=== PATIENT | male | born 1940 | race Caucasian/White ===

== ENCOUNTER 2020-09-07 16:36 | Inpatient (IN) | payer OTHER ==
[~2020-09-07] VITALS: Ht 190.5 cm; Wt 95.3 kg
--- NOTE | 2020-09-07 16:56 | NUR ---
at bedside for assessment
--- NOTE | 2020-09-07 17:20 | NUR ---
Sitter noted at bedside, no behaviors noted
--- NOTE | 2020-09-07 18:55 | NUR ---
Pt. admitted to [facility]HU , under care of Dr. Farias Belongs List completed and all belongigns sent with patient
[2020-09-07] MEDS ORDERED: ASPI81TA31 PO (19:10)
[2020-09-07] MEDS ORDERED: ALLO100T PO (19:10)
[2020-09-07] MEDS ORDERED: ATOR40TA PO (19:10)
[2020-09-07] MEDS ORDERED: FURO40TA5 PO (19:16)
[2020-09-07] MEDS ORDERED: TRAZ-182 PO (19:16)
[2020-09-07] MEDS ORDERED: OLAN5TAB3 PO (19:16)
[2020-09-07] MEDS ORDERED: TAMS-3 PO (19:16)
[2020-09-07] MEDS ORDERED: POTA10CA43 PO (19:16)
[2020-09-07] MEDS ORDERED: PANT40TA49 PO (19:16)
[2020-09-07] MEDS ORDERED: INSU100I47 SQ (19:16)
[2020-09-07] MEDS ORDERED: INSU100V10 SQ (19:16)
[2020-09-07] MEDS ORDERED: SITA50TA PO (19:16)
[2020-09-07] MEDS ORDERED: CARV12.52 PO (19:16)
[2020-09-07] MEDS ORDERED: METF-442 PO (19:16)
[2020-09-07] MEDS ORDERED: MAG HYDROX/AL HYDROX/SIMETH 30 ML LIQUID UDC PO PRN (21:15)
[2020-09-07] MEDS ORDERED: ACETAMINOPHEN 325 MG TABLET PO PRN (21:15)
[2020-09-07] MEDS ORDERED: MAGNESIUM HYDROXIDE 30 ML LIQUID UDC PO PRN (21:15)
[2020-09-07] MEDS ORDERED: TEMAZEPAM 7.5 MG CAPSULE PO PRN (21:15)
[2020-09-07] MEDS ORDERED: BLOOD SUGAR DIAGNOSTIC 1 EACH STRIP VI ONE (21:15)
[2020-09-08 00:08] VITALS: BP 112/54
--- NOTE | 2020-09-08 06:04 | NUR ---
Pt came from ER at around 1850 (09/07) in a safe, stable condition. No s/s of distress, no complaints of pain/discomfort. VS taken, oriented to his room and the unit. Assisted to a comfortable position. Per hold, pt was admitted to MHU because he claimed he "came from [facility]", was being non-compliant with his meds and aggressive towards staff and others. Upon face to face assessment, pt was cooperative, alert/oriented x3, had loose associations. Pt's Rights Handbook and advisement given. Dr. Boucher made aware of admission, said he would do med recon in the morning (09/08). Daughter Laurie likewise informed of admission, acknowledged information and said she would pass along the information to her siblings, and that she would call the unit for any questions/concerns. Safety precautions in place, snacks provided at HS per pt's request. Will endorse pt accordingly and continue to monitor.
[2020-09-08 07:59] VITALS: BP 139/53
--- NOTE | 2020-09-08 09:18 | NUR ---
GPS: Received patient sitting up in chair in his room. alert and oriented x 3,ambulatory. plesant upon approach. no agitation noted. no c/o pain or discomfort at this time. waiting for md to order routine meds. continue plan of care.
--- NOTE | 2020-09-08 10:30 | NUR ---
GPS: Left message to via phone , patient is diabetic need blood sugar check order and routine meds.
--- NOTE | 2020-09-08 10:37 | NUR ---
Firearms Report: Cottage Supervisor completed and submitted a [employer] firearms report for 5150 grave disability certifications. A copy of report has been placed in patient chart.
--- NOTE | 2020-09-08 10:42 | NUR ---
DELICIA Initial Discharge plan: Patient was transferred to [facility] from [facility] address: [address] [place] [address] ([phone]) and will be returning there upon discharge. Per letter of agreement from [facility], Radha Mansfield Paunch Trimmer ([phone]), they will also be providing transportation for the patient at discharge to return to [facility]. DELICIA will continue to work with patient and MD to ensure a safe and proper discharge plan.
--- NOTE | 2020-09-08 10:46 | NUR ---
UR NOTE: Per GG intake: Auth# [id number] obtained from Meeta Gamble with [facility] at [phone]. Fax clinical reviews and face sheet to [phone] upon arrival. Daycare Worker. assigned is Romy Nichols and her phone number [phone].
[2020-09-08] MEDS: BLOOD SUGAR DIAGNOSTIC 1 EACH STRIP VI SCH ×3 (12:44→20:26)
[2020-09-08] MEDS ORDERED: DEXTROSE 50% 50 ML DISP.SYRIN IV PRN (12:45)
[2020-09-08] MEDS: INSULIN REGULAR, HUMAN 300 UNIT/3 ML VIAL SQ PRN ×2 (12:46→16:35)
--- NOTE | 2020-09-08 13:22 | NUR ---
Laura Hare NP notified about patient's home medications needing reconciliation and notified of patient's blood sugar level of 229. Orders received for moderate sliding scale. Orders placed for moderate sliding scale with regular insulin. EXHIBITION ORGANISER stated she will be here later to reconcile medications.
--- NOTE | 2020-09-08 13:53 | NUR ---
UR NOTE: Auth# [id number] Agricultural Service Technician Romy ([phone]), sw faxed facesheet as requested by Romy today.
--- NOTE | 2020-09-08 13:55 | NUR ---
Discharge Planning: DELICIA spoke with sobia Castaneda Upper Cutter Out at [facility] (P: [phone]) who stated that they are looking into finding placement for the patient. Sobia confirmed that once the patient is ready to be discharge, they accept the patient back to [facility] and will arrange transportation.
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
[2020-09-08 16:29] VITALS: BP 130/44
[2020-09-08] MEDS: METFORMIN HCL 500 MG TABLET PO SCH (17:26)
[2020-09-08] MEDS: ATORVASTATIN 40 MG TABLET PO SCH (20:26)
[2020-09-08] MEDS: TAMSULOSIN HCL 0.4 MG CAP.SR.24H PO SCH (20:26)
[2020-09-08] MEDS: INSULIN REGULAR, HUMAN 300 UNITS/3 ML VIAL SQ PRN (20:40)
[2020-09-08 21:19] VITALS: BP 135/62
[2020-09-08] MEDS ORDERED: risperiDONE 0.5 MG TABLET PO SCH (23:15)
--- NOTE | 2020-09-09 03:45 | NUR ---
PATIENT NOTED AWAKE. HE IS NOTED WITH GRANDIOSE DELUSIONAL THINKING, AND HYPERVERBAL. HE STATED, "I KNOW HOW TO MAKE YOU VERY RICH IN 1 MONTH". HE IS REASSURED AND REDIRECTED. HE IS NOTED REDIRECTABLE AT THIS TIME. WILL CONTINUE TO MONITOR.
[2020-09-09] MEDS: PANTOPRAZOLE SODIUM 40 MG TABLET.DR PO SCH (07:00)
[2020-09-09] MEDS: BLOOD SUGAR DIAGNOSTIC 1 EACH STRIP VI SCH ×4 (07:00→20:25)
[2020-09-09 07:30] VITALS: BP 125/70
--- NOTE | 2020-09-09 07:58 | NUR ---
UR NOTE: Auth# [id number] Cnmt Romy ([phone]), ozzy faxed clinicals.
[2020-09-09 08:10] LABS: BILIRUBIN,TOTAL 1.7 mg/dL (0.2-1.0); CREATININE 1.1 mg/dL (0.6-1.3); POTASSIUM 4.6 mmol/L (3.5-5.1); TOTAL PROTEIN, SERUM 6.7 g/dL (6.4-8.2)
[2020-09-09] MEDS ORDERED: Medication Not On Formulary EA (Sitagliptin Phosphate (Januvia) 25 MG) PO SCH (09:00)
[2020-09-09] MEDS: FUROSEMIDE 40 MG TABLET PO SCH (09:04)
[2020-09-09] MEDS: LOSARTAN POTASSIUM 25 MG TABLET PO SCH (09:05)
[2020-09-09] MEDS: CARVEDILOL 12.5 MG TABLET PO SCH (09:05)
[2020-09-09] MEDS: ASPIRIN 81 MG TAB.CHEW PO SCH (09:05)
[2020-09-09] MEDS: POTASSIUM CHLORIDE 10 MEQ TAB.PRT.SR PO SCH (09:05)
[2020-09-09] MEDS: LINAGLIPTIN 5 MG TABLET PO SCH (09:06)
[2020-09-09] MEDS: ALLOPURINOL 100 MG TABLET PO SCH (09:06)
[2020-09-09] MEDS: DIVALPROEX 250 MG TABLET.DR PO SCH ×3 (09:06→17:17)
[2020-09-09] MEDS: METFORMIN HCL 500 MG TABLET PO SCH ×2 (09:06→17:17)
[2020-09-09] MEDS: risperiDONE 1 MG TABLET PO SCH ×2 (09:08→20:18)
[2020-09-09] MEDS: LORAZEPAM 1 MG TABLET PO PRN (10:15)
--- NOTE | 2020-09-09 10:20 | NUR ---
SW Family Contact: This SW received a phone call from daughter Laurie ([phone]) she had left a voicemail to social insurance analyst Irina. This SW attempted to contact back and she was unavailable. This SW unable to leave a voicemail, she did not have a mailbox.
--- NOTE | 2020-09-09 13:18 | NUR ---
SW Family Contact: This SW contacted patient's daughter Laurie ([phone]) and she stated that pt has been contacting her and stating that he is being discharged today. She expressed that patient appears to be manic and grandiose stating that he is the president. Daughter wanted to know the medications pt is on. This SW reported antipsychotic medications to daughter and discussed treatment/discharge plan.
[2020-09-09 16:00] VITALS: BP 127/51
[2020-09-09 20:00] VITALS: BP 133/70
[2020-09-09] MEDS: ATORVASTATIN 40 MG TABLET PO SCH (20:18)
[2020-09-09] MEDS: TAMSULOSIN HCL 0.4 MG CAP.SR.24H PO SCH (20:18)
[2020-09-10] MEDS: PANTOPRAZOLE SODIUM 40 MG TABLET.DR PO SCH (07:00)
[2020-09-10 07:30] VITALS: BP 111/75
[2020-09-10] MEDS: BLOOD SUGAR DIAGNOSTIC 1 EACH STRIP VI SCH ×4 (07:57→21:01)
--- NOTE | 2020-09-10 08:51 | NUR ---
UR NOTE: Auth# [id number] Presser Machine Romy ([phone] [phone]). DELICIA faxed updated daily clinicals.
[2020-09-10] MEDS: DIVALPROEX 250 MG TABLET.DR PO SCH ×3 (10:11→18:06)
[2020-09-10] MEDS: FUROSEMIDE 40 MG TABLET PO SCH (10:11)
[2020-09-10] MEDS: ASPIRIN 81 MG TAB.CHEW PO SCH (10:11)
[2020-09-10] MEDS: risperiDONE 1 MG TABLET PO SCH (10:12)
[2020-09-10] MEDS: CARVEDILOL 12.5 MG TABLET PO SCH (10:12)
[2020-09-10] MEDS: METFORMIN HCL 500 MG TABLET PO SCH ×2 (10:12→18:07)
[2020-09-10] MEDS: LOSARTAN POTASSIUM 25 MG TABLET PO SCH (10:12)
[2020-09-10] MEDS: POTASSIUM CHLORIDE 10 MEQ TAB.PRT.SR PO SCH (10:13)
[2020-09-10] MEDS: LINAGLIPTIN 5 MG TABLET PO SCH (10:13)
[2020-09-10] MEDS: ALLOPURINOL 100 MG TABLET PO SCH (10:32)
[2020-09-10] MEDS: INSULIN REGULAR, HUMAN 300 UNIT/3 ML VIAL SQ PRN (13:17)
[2020-09-10 17:00] VITALS: BP 116/69
[2020-09-10 20:19] VITALS: BP 132/51
[2020-09-10] MEDS: ATORVASTATIN 40 MG TABLET PO SCH (20:51)
[2020-09-10] MEDS: TAMSULOSIN HCL 0.4 MG CAP.SR.24H PO SCH (20:51)
[2020-09-10] MEDS: risperiDONE 0.5 MG TABLET PO SCH (20:52)
[2020-09-10] MEDS: INSULIN REGULAR, HUMAN 300 UNITS/3 ML VIAL SQ PRN (21:04)
--- NOTE | 2020-09-10 22:11 | NUR ---
BG for HS is 154 which needs Humulin R coverage of 2U per sliding scale. Pt refused, said that he does not need insulin for 154 and that he was fine, did not want it. Teachings provided, compliance encouraged but pt continued to refuse.
[2020-09-11] MEDS: BLOOD SUGAR DIAGNOSTIC 1 EACH STRIP VI SCH ×4 (06:08→21:16)
[2020-09-11] MEDS: PANTOPRAZOLE SODIUM 40 MG TABLET.DR PO SCH (06:37)
[2020-09-11 07:44] VITALS: BP 125/58
[2020-09-11] MEDS: INSULIN REGULAR, HUMAN 300 UNIT/3 ML VIAL SQ PRN ×2 (07:47→11:37)
[2020-09-11] MEDS: LINAGLIPTIN 5 MG TABLET PO SCH (08:11)
[2020-09-11] MEDS: risperiDONE 0.5 MG TABLET PO SCH ×2 (08:11→20:02)
[2020-09-11] MEDS: POTASSIUM CHLORIDE 10 MEQ TAB.PRT.SR PO SCH (08:12)
[2020-09-11] MEDS: ALLOPURINOL 100 MG TABLET PO SCH (08:12)
[2020-09-11] MEDS: ASPIRIN 81 MG TAB.CHEW PO SCH (08:12)
[2020-09-11] MEDS: DIVALPROEX 250 MG TABLET.DR PO SCH ×3 (08:12→16:16)
[2020-09-11] MEDS: FUROSEMIDE 40 MG TABLET PO SCH (08:12)
[2020-09-11] MEDS: METFORMIN HCL 500 MG TABLET PO SCH ×2 (08:12→17:16)
[2020-09-11] MEDS: CARVEDILOL 12.5 MG TABLET PO SCH (08:12)
[2020-09-11] MEDS: LOSARTAN POTASSIUM 25 MG TABLET PO SCH (08:12)
[2020-09-11 16:04] VITALS: BP 110/47
[2020-09-11] MEDS: INSULIN REGULAR, HUMAN 300 UNITS/3 ML VIAL SQ PRN ×2 (16:41→21:16)
--- NOTE | 2020-09-11 17:32 | NUR ---
PT NOTED PARANOID AND DELUSIONAL. FREQUENTLY AT NURSES STATION WITH COPY OF 14 DAY HOLD ASKING STAFF TO MAKE MULTIPLE COPIES FOR HIM. ADDITIONAL COPIES HAVE BEEN PROVIDED FOR PT UPON REQUESTS. STATES IT IS TO "CAROLE THIS PLACE EVERY SINGLE DAY FOR 1 MILLION DOLLARS."
[2020-09-11 19:59] VITALS: BP 112/52
[2020-09-11] MEDS: ATORVASTATIN 40 MG TABLET PO SCH (20:02)
[2020-09-11] MEDS: TAMSULOSIN HCL 0.4 MG CAP.SR.24H PO SCH (20:02)
[2020-09-12] MEDS: BLOOD SUGAR DIAGNOSTIC 1 EACH STRIP VI SCH ×4 (06:20→20:56)
[2020-09-12] MEDS: PANTOPRAZOLE SODIUM 40 MG TABLET.DR PO SCH (07:52)
[2020-09-12] MEDS: CARVEDILOL 12.5 MG TABLET PO SCH (07:53)
[2020-09-12] MEDS: METFORMIN HCL 500 MG TABLET PO SCH ×2 (07:53→17:28)
[2020-09-12] MEDS: ASPIRIN 81 MG TAB.CHEW PO SCH (07:53)
[2020-09-12] MEDS: DIVALPROEX 250 MG TABLET.DR PO SCH ×3 (07:54→17:28)
[2020-09-12] MEDS: risperiDONE 0.5 MG TABLET PO SCH ×2 (07:54→20:55)
[2020-09-12] MEDS: LOSARTAN POTASSIUM 25 MG TABLET PO SCH (07:54)
[2020-09-12] MEDS: LINAGLIPTIN 5 MG TABLET PO SCH (07:54)
[2020-09-12] MEDS: POTASSIUM CHLORIDE 10 MEQ TAB.PRT.SR PO SCH (07:54)
[2020-09-12] MEDS: ALLOPURINOL 100 MG TABLET PO SCH (07:55)
[2020-09-12] MEDS: INSULIN REGULAR, HUMAN 300 UNIT/3 ML VIAL SQ PRN ×3 (07:56→17:21)
[2020-09-12] MEDS: FUROSEMIDE 40 MG TABLET PO SCH (08:00)
[2020-09-12 08:17] VITALS: BP 141/59
--- NOTE | 2020-09-12 12:59 | NUR ---
Pt.was seen by CHRISTI CORTEZ MD
[2020-09-12 16:47] VITALS: BP 105/57
--- NOTE | 2020-09-12 17:46 | NUR ---
PT. IS NOTED WITH GRANDIOSE DELUSIONAL THINKING, AND HYPERVERBAL.SPOKE ON THE PHONE WITH DTR.
[2020-09-12 20:03] VITALS: BP 136/56
[2020-09-12] MEDS: ATORVASTATIN 40 MG TABLET PO SCH (20:55)
[2020-09-12] MEDS: TAMSULOSIN HCL 0.4 MG CAP.SR.24H PO SCH (20:55)
[2020-09-12] MEDS: INSULIN REGULAR, HUMAN 300 UNITS/3 ML VIAL SQ PRN (21:00)
[2020-09-13] MEDS: PANTOPRAZOLE SODIUM 40 MG TABLET.DR PO SCH (06:18)
[2020-09-13] MEDS: BLOOD SUGAR DIAGNOSTIC 1 EACH STRIP VI SCH ×4 (06:18→21:49)
[2020-09-13 07:30] VITALS: BP 153/78
--- NOTE | 2020-09-13 08:06 | NUR ---
UR NOTE: Auth# [id number] Inhalation Therapy Teacher Romy ([phone]). DELICIA faxed updated daily clinicals.
[2020-09-13] MEDS: DIVALPROEX 250 MG TABLET.DR PO SCH ×3 (08:41→17:22)
[2020-09-13] MEDS: FUROSEMIDE 40 MG TABLET PO SCH (08:42)
[2020-09-13] MEDS: POTASSIUM CHLORIDE 10 MEQ TAB.PRT.SR PO SCH (08:42)
[2020-09-13] MEDS: LOSARTAN POTASSIUM 25 MG TABLET PO SCH (08:43)
[2020-09-13] MEDS: METFORMIN HCL 500 MG TABLET PO SCH ×2 (08:44→17:22)
[2020-09-13] MEDS: ASPIRIN 81 MG TAB.CHEW PO SCH (08:44)
[2020-09-13] MEDS: LINAGLIPTIN 5 MG TABLET PO SCH (08:44)
[2020-09-13] MEDS: CARVEDILOL 12.5 MG TABLET PO SCH (08:44)
[2020-09-13] MEDS: ALLOPURINOL 100 MG TABLET PO SCH (08:47)
[2020-09-13] MEDS: LORAZEPAM 1 MG TABLET PO PRN (08:47)
[2020-09-13] MEDS: risperiDONE 0.5 MG TABLET PO SCH ×2 (08:48→21:48)
[2020-09-13] MEDS: INSULIN REGULAR, HUMAN 300 UNIT/3 ML VIAL SQ PRN ×2 (08:50→11:37)
[2020-09-13 15:30] VITALS: BP 120/50
--- NOTE | 2020-09-13 16:55 | NUR ---
Accu-check done BS 72 chocolate pudding given ,denies any hypoglycemia noted.
[2020-09-13 20:10] VITALS: BP 146/64
[2020-09-13] MEDS: ATORVASTATIN 40 MG TABLET PO SCH (21:48)
[2020-09-13] MEDS: TAMSULOSIN HCL 0.4 MG CAP.SR.24H PO SCH (21:48)
[2020-09-13] MEDS: INSULIN REGULAR, HUMAN 300 UNITS/3 ML VIAL SQ PRN (21:51)
[2020-09-14] MEDS: PANTOPRAZOLE SODIUM 40 MG TABLET.DR PO SCH (06:23)
[2020-09-14] MEDS: BLOOD SUGAR DIAGNOSTIC 1 EACH STRIP VI SCH ×4 (06:23→21:03)
[2020-09-14 07:30] VITALS: BP 157/86
[2020-09-14] MEDS: POTASSIUM CHLORIDE 10 MEQ TAB.PRT.SR PO SCH (08:20)
[2020-09-14] MEDS: FUROSEMIDE 40 MG TABLET PO SCH (08:20)
[2020-09-14] MEDS: ASPIRIN 81 MG TAB.CHEW PO SCH (08:20)
[2020-09-14] MEDS: DIVALPROEX 250 MG TABLET.DR PO SCH ×3 (08:21→17:05)
[2020-09-14] MEDS: LINAGLIPTIN 5 MG TABLET PO SCH (08:21)
[2020-09-14] MEDS: ALLOPURINOL 100 MG TABLET PO SCH (08:21)
[2020-09-14] MEDS: risperiDONE 0.5 MG TABLET PO SCH ×2 (08:21→20:54)
[2020-09-14] MEDS: METFORMIN HCL 500 MG TABLET PO SCH ×2 (08:23→17:05)
[2020-09-14] MEDS: CARVEDILOL 12.5 MG TABLET PO SCH (08:23)
[2020-09-14] MEDS: LOSARTAN POTASSIUM 25 MG TABLET PO SCH (08:23)
--- NOTE | 2020-09-14 09:50 | NUR ---
UR NOTE: Auth# [id number] Auto Fleet Manager Romy ([phone] [phone]). DELICIA faxed updated daily clinicals.
[2020-09-14] MEDS: INSULIN REGULAR, HUMAN 300 UNIT/3 ML VIAL SQ PRN (11:28)
--- NOTE | 2020-09-14 11:47 | NUR ---
DELICIA PC Hearing: Patient had 5250 probable cause hearing today and it was upheld for grave disability.
--- NOTE | 2020-09-14 15:36 | NUR ---
UR NOTE: Auth# [id number] DELICIA spoke with Junior High Math Teacher Romy ([phone]) and requested a fax confirmation of the authorization. Romy sent this SW faxed confirming patient has continued authorization. DELICIA placed the copy in the patient's chart.
[2020-09-14 15:53] VITALS: BP 109/55
[2020-09-14 20:18] VITALS: BP 93/50
[2020-09-14] MEDS: ATORVASTATIN 40 MG TABLET PO SCH (20:53)
[2020-09-14] MEDS: TAMSULOSIN HCL 0.4 MG CAP.SR.24H PO SCH (20:55)
--- NOTE | 2020-09-14 23:40 | NUR ---
PATIENT ALERT/ORIENTED X2. PATIENT IS EASILY ANXIOUS,SUSPICIOUS AND NEEDY AT TIMES.COMPLIANT WITH MEDS AND CARE. PATIENT DENIES PAIN/SI/HI.PATIENT UNSTEADY ON HIS FEET/FWW. NO EPISODE OF YELLING OR SCREAMING. PATIENT'S ACCUCHECK AT 2100 168, PATIENT REFUSED INSULIN EXPLAINED RISK AND CONTINUES TO REFUSE. SAFE ENVIRONMENT PROVIDED, FREQUENT ROUNDING, AND CLUTTER FREE ENVIRONMENT. BED IN LOWEST POSITION, BED LOCKED, AND BED ALARM ON WHILE IN BED.
[2020-09-15] MEDS: PANTOPRAZOLE SODIUM 40 MG TABLET.DR PO SCH (06:41)
[2020-09-15] MEDS: BLOOD SUGAR DIAGNOSTIC 1 EACH STRIP VI SCH ×4 (06:46→20:40)
[2020-09-15 07:30] VITALS: BP 140/59
[2020-09-15] MEDS: INSULIN REGULAR, HUMAN 300 UNIT/3 ML VIAL SQ PRN ×2 (08:03→12:09)
[2020-09-15] MEDS: LINAGLIPTIN 5 MG TABLET PO SCH (08:39)
[2020-09-15] MEDS: ASPIRIN 81 MG TAB.CHEW PO SCH (08:39)
[2020-09-15] MEDS: risperiDONE 0.5 MG TABLET PO SCH ×2 (08:39→20:33)
[2020-09-15] MEDS: DIVALPROEX 250 MG TABLET.DR PO SCH ×3 (08:40→16:59)
[2020-09-15] MEDS: METFORMIN HCL 500 MG TABLET PO SCH ×2 (08:40→17:00)
[2020-09-15] MEDS: ALLOPURINOL 100 MG TABLET PO SCH (08:40)
[2020-09-15] MEDS: FUROSEMIDE 40 MG TABLET PO SCH (08:40)
[2020-09-15] MEDS: POTASSIUM CHLORIDE 10 MEQ TAB.PRT.SR PO SCH (08:40)
[2020-09-15] MEDS: CARVEDILOL 12.5 MG TABLET PO SCH (08:41)
[2020-09-15] MEDS: LOSARTAN POTASSIUM 25 MG TABLET PO SCH (08:41)
--- NOTE | 2020-09-15 09:56 | NUR ---
UR NOTE: Auth# [id number] DELICIA sent clinicals to Mail Courier Romy ([phone]). DELICIA faxed clinical.
[2020-09-15 16:00] VITALS: BP 111/50
[2020-09-15 20:21] VITALS: BP 116/47
[2020-09-15] MEDS: ATORVASTATIN 40 MG TABLET PO SCH (20:33)
[2020-09-15] MEDS: TAMSULOSIN HCL 0.4 MG CAP.SR.24H PO SCH (20:33)
[2020-09-16] MEDS: PANTOPRAZOLE SODIUM 40 MG TABLET.DR PO SCH (06:14)
[2020-09-16] MEDS: BLOOD SUGAR DIAGNOSTIC 1 EACH STRIP VI SCH ×5 (06:23→20:36)
[2020-09-16 07:08] LABS: HEMATOCRIT 31.7 % (36.7-47.1); MEAN CORPUSCULAR HEMOGLOBIN 29.9 uug (23.8-33.4); MEAN CORPUSCULAR VOLUME 90.8 fL (73.0-96.2); PLATELET COUNT (AUTO) 137 K/uL (152-348)
[2020-09-16 07:17] LABS: POTASSIUM 4.1 mmol/L (3.5-5.1)
[2020-09-16 07:30] VITALS: BP 139/60
[2020-09-16] MEDS: ASPIRIN 81 MG TAB.CHEW PO SCH (09:28)
[2020-09-16] MEDS: POTASSIUM CHLORIDE 10 MEQ TAB.PRT.SR PO SCH (09:28)
[2020-09-16] MEDS: LINAGLIPTIN 5 MG TABLET PO SCH (09:28)
[2020-09-16] MEDS: METFORMIN HCL 500 MG TABLET PO SCH ×2 (09:28→16:53)
[2020-09-16] MEDS: CARVEDILOL 12.5 MG TABLET PO SCH (09:29)
[2020-09-16] MEDS: DIVALPROEX 250 MG TABLET.DR PO SCH ×3 (09:29→16:53)
[2020-09-16] MEDS: LOSARTAN POTASSIUM 25 MG TABLET PO SCH (09:31)
[2020-09-16] MEDS: ALLOPURINOL 100 MG TABLET PO SCH (09:31)
[2020-09-16] MEDS: risperiDONE 0.5 MG TABLET PO SCH ×2 (09:31→20:26)
[2020-09-16] MEDS: FUROSEMIDE 40 MG TABLET PO SCH (09:37)
--- NOTE | 2020-09-16 09:43 | NUR ---
UR NOTE: Auth# [id number] DELICIA sent clinicals to Enterostomal Therapy Nurse Romy ([phone]). DELICIA faxed clinical.
--- NOTE | 2020-09-16 11:50 | NUR ---
lab reported vpa level will be delayed due to machine is down.
[2020-09-16] MEDS: INSULIN REGULAR, HUMAN 300 UNIT/3 ML VIAL SQ PRN (12:05)
--- NOTE | 2020-09-16 13:29 | NUR ---
DELICIA [facility] Contact: DELICIA spoke with Edgar NESBITT from [facility] ([phone]) and stated pt is ready for discharge 09/21. Edgar stated to confirm on 09/20 for transportation time. Monico stated pt will becoming back to [facility] and has a major case detective Viviana who is working patient's discharge plan.
[2020-09-16 16:01] VITALS: BP 144/54
[2020-09-16 20:00] VITALS: BP 142/51
[2020-09-16] MEDS: TAMSULOSIN HCL 0.4 MG CAP.SR.24H PO SCH (20:25)
[2020-09-16] MEDS: ATORVASTATIN 40 MG TABLET PO SCH (20:26)
[2020-09-16] MEDS: INSULIN REGULAR, HUMAN 300 UNITS/3 ML VIAL SQ PRN (20:37)
--- NOTE | 2020-09-16 21:12 | NUR ---
Refused to take 2U of Humulin R per SS for BG of 157 at HS despite teaching. He said he does not take insulin for "that kind of result."
[2020-09-17] MEDS: PANTOPRAZOLE SODIUM 40 MG TABLET.DR PO SCH (06:18)
[2020-09-17] MEDS: BLOOD SUGAR DIAGNOSTIC 1 EACH STRIP VI SCH ×4 (06:28→20:30)
[2020-09-17 07:30] VITALS: BP 160/68
--- NOTE | 2020-09-17 09:02 | NUR ---
UR NOTE: Auth# [id number] DELICIA sent clinicals to Sample Hand Romy ([phone]). DELICIA faxed clinical and requested a fax confirmation.
[2020-09-17] MEDS: METFORMIN HCL 500 MG TABLET PO SCH ×2 (09:10→17:08)
[2020-09-17] MEDS: DIVALPROEX 250 MG TABLET.DR PO SCH ×3 (09:11→17:08)
[2020-09-17] MEDS: FUROSEMIDE 40 MG TABLET PO SCH (09:11)
[2020-09-17] MEDS: LINAGLIPTIN 5 MG TABLET PO SCH (09:11)
[2020-09-17] MEDS: ASPIRIN 81 MG TAB.CHEW PO SCH (09:11)
[2020-09-17] MEDS: LOSARTAN POTASSIUM 25 MG TABLET PO SCH (09:11)
[2020-09-17] MEDS: ALLOPURINOL 100 MG TABLET PO SCH (09:11)
[2020-09-17] MEDS: risperiDONE 0.5 MG TABLET PO SCH ×2 (09:11→20:22)
[2020-09-17] MEDS: CARVEDILOL 12.5 MG TABLET PO SCH (09:12)
[2020-09-17] MEDS: POTASSIUM CHLORIDE 10 MEQ TAB.PRT.SR PO SCH (09:12)
--- NOTE | 2020-09-17 10:03 | NUR ---
DELICIA Coordination of Care: SW received a call from Maxine ([phone]) Managed Security Sales Consultant from [facility] stating that she and the patient's daughter, Laurie have been coordination for the patient to fly out to [place] to live with his daughter on Sunday09/21/20. Maxine stated that they have purchased a flight ticket departing around 11am from [facility]. Maxine stated they will coordinate a transportation for patient to be picked up from [facility] early Sunday morning and taken to the airport.
[2020-09-17] MEDS: INSULIN REGULAR, HUMAN 300 UNIT/3 ML VIAL SQ PRN (11:53)
[2020-09-17 16:00] VITALS: BP 146/77
[2020-09-17 20:03] VITALS: BP 140/66
[2020-09-17] MEDS: TAMSULOSIN HCL 0.4 MG CAP.SR.24H PO SCH (20:22)
[2020-09-17] MEDS: ATORVASTATIN 40 MG TABLET PO SCH (20:22)
[2020-09-17] MEDS: INSULIN REGULAR, HUMAN 300 UNITS/3 ML VIAL SQ PRN (20:31)
[2020-09-18] MEDS: BLOOD SUGAR DIAGNOSTIC 1 EACH STRIP VI SCH ×5 (06:06→20:06)
[2020-09-18] MEDS: PANTOPRAZOLE SODIUM 40 MG TABLET.DR PO SCH (06:19)
--- NOTE | 2020-09-18 06:46 | NUR ---
GPS: REMAIN COOPERATIVE WITH CARE, PATIENT IS EASILY ANXIOUS,SUSPICIOUS AND NEEDY AT TIMES.COMPLIANT WITH MEDS AND CARE. PATIENT DENIES PAIN/SI/HI. PATIENT REFUSED INSULIN LAST NIGHT, EXPLAINED RISK AND CONTINUES TO REFUSE. SAFE ENVIRONMENT PROVIDED, FREQUENT ROUNDING, SLEPT 6.45 HRS THROUGH THE NIGHT. BED IN LOWEST POSITION, BED LOCKED, AND BED ALARM ON WHILE IN BED.
[2020-09-18 07:52] VITALS: BP 151/74
[2020-09-18] MEDS: DIVALPROEX 250 MG TABLET.DR PO SCH ×3 (08:23→16:45)
[2020-09-18] MEDS: LINAGLIPTIN 5 MG TABLET PO SCH (08:23)
[2020-09-18] MEDS: ASPIRIN 81 MG TAB.CHEW PO SCH (08:24)
[2020-09-18] MEDS: CARVEDILOL 12.5 MG TABLET PO SCH (08:24)
[2020-09-18] MEDS: POTASSIUM CHLORIDE 10 MEQ TAB.PRT.SR PO SCH (08:24)
[2020-09-18] MEDS: risperiDONE 0.5 MG TABLET PO SCH ×2 (08:24→20:05)
[2020-09-18] MEDS: METFORMIN HCL 500 MG TABLET PO SCH ×2 (08:24→17:13)
[2020-09-18] MEDS: ALLOPURINOL 100 MG TABLET PO SCH (08:24)
[2020-09-18] MEDS: LOSARTAN POTASSIUM 25 MG TABLET PO SCH (08:25)
[2020-09-18] MEDS: FUROSEMIDE 40 MG TABLET PO SCH (08:25)
[2020-09-18] MEDS: INSULIN REGULAR, HUMAN 300 UNIT/3 ML VIAL SQ PRN (11:53)
[2020-09-18 17:01] VITALS: BP 137/63
[2020-09-18 20:04] VITALS: BP 120/67
[2020-09-18] MEDS: TAMSULOSIN HCL 0.4 MG CAP.SR.24H PO SCH (20:05)
[2020-09-18] MEDS: ATORVASTATIN 40 MG TABLET PO SCH (20:05)
[2020-09-18] MEDS: INSULIN REGULAR, HUMAN 300 UNITS/3 ML VIAL SQ PRN (20:07)
--- NOTE | 2020-09-18 20:08 | NUR ---
Pt refused insulin, education provided regarding risks and benefits.
[2020-09-19] MEDS: PANTOPRAZOLE SODIUM 40 MG TABLET.DR PO SCH (06:28)
[2020-09-19] MEDS: BLOOD SUGAR DIAGNOSTIC 1 EACH STRIP VI SCH ×4 (06:30→20:19)
[2020-09-19 08:17] VITALS: BP 123/64
[2020-09-19] MEDS: ASPIRIN 81 MG TAB.CHEW PO SCH (08:37)
[2020-09-19] MEDS: METFORMIN HCL 500 MG TABLET PO SCH ×2 (08:37→17:38)
[2020-09-19] MEDS: ALLOPURINOL 100 MG TABLET PO SCH (08:38)
[2020-09-19] MEDS: CARVEDILOL 12.5 MG TABLET PO SCH (08:38)
[2020-09-19] MEDS: POTASSIUM CHLORIDE 10 MEQ TAB.PRT.SR PO SCH (08:38)
[2020-09-19] MEDS: risperiDONE 0.5 MG TABLET PO SCH ×2 (08:38→20:09)
[2020-09-19] MEDS: FUROSEMIDE 40 MG TABLET PO SCH (08:38)
[2020-09-19] MEDS: LINAGLIPTIN 5 MG TABLET PO SCH (08:38)
[2020-09-19] MEDS: DIVALPROEX 250 MG TABLET.DR PO SCH ×3 (08:39→16:48)
[2020-09-19] MEDS: LOSARTAN POTASSIUM 25 MG TABLET PO SCH (08:39)
[2020-09-19] MEDS: INSULIN REGULAR, HUMAN 300 UNIT/3 ML VIAL SQ PRN (12:06)
[2020-09-19 16:20] VITALS: BP 147/66
[2020-09-19 19:54] VITALS: BP 118/64
[2020-09-19] MEDS: ATORVASTATIN 40 MG TABLET PO SCH (20:09)
[2020-09-19] MEDS: TAMSULOSIN HCL 0.4 MG CAP.SR.24H PO SCH (20:09)
[2020-09-20] MEDS: PANTOPRAZOLE SODIUM 40 MG TABLET.DR PO SCH (06:03)
--- NOTE | 2020-09-20 06:17 | NUR ---
HS BS 151, but Pt refused insulin stating, "I don't take insulin if it's under 200". Pt educated regarding insulin protocol, but he still refused. Pt is grandiose and makes delusional statements at times, "I am God" "I have enough money to buy this hospital", but is redirectable and compliant with medications. VS stable, denied pain. AM BS 166. Refused shower.
[2020-09-20] MEDS: BLOOD SUGAR DIAGNOSTIC 1 EACH STRIP VI SCH ×4 (06:43→20:31)
[2020-09-20 07:30] VITALS: BP 108/59
[2020-09-20] MEDS: METFORMIN HCL 500 MG TABLET PO SCH ×2 (08:26→17:31)
[2020-09-20] MEDS: risperiDONE 0.5 MG TABLET PO SCH ×2 (08:27→20:23)
[2020-09-20] MEDS: ASPIRIN 81 MG TAB.CHEW PO SCH (08:27)
[2020-09-20] MEDS: POTASSIUM CHLORIDE 10 MEQ TAB.PRT.SR PO SCH (08:27)
[2020-09-20] MEDS: LINAGLIPTIN 5 MG TABLET PO SCH (08:27)
[2020-09-20] MEDS: CARVEDILOL 12.5 MG TABLET PO SCH (08:27)
[2020-09-20] MEDS: DIVALPROEX 250 MG TABLET.DR PO SCH ×3 (08:27→16:37)
[2020-09-20] MEDS: ALLOPURINOL 100 MG TABLET PO SCH (08:28)
[2020-09-20] MEDS: FUROSEMIDE 40 MG TABLET PO SCH (08:28)
[2020-09-20] MEDS: LOSARTAN POTASSIUM 25 MG TABLET PO SCH (08:28)
[2020-09-20] MEDS: INSULIN REGULAR, HUMAN 300 UNIT/3 ML VIAL SQ PRN ×3 (08:30→16:38)
--- NOTE | 2020-09-20 15:16 | NUR ---
DELICIA Coordination of Care: DELICIA spoke with [facility], director of social services Maxine ([phone]) who stated that they are no longer going to be arranging for patient to fly out to [place] tomorrow. Maxine stated that have arranged [place] [address] system administrator Pritesh ([phone]). Maxine stated that, "Pritesh does not need report and will be there when the patient arrives and has been briefed on his history". Maxine states Patients daughter, Laurie ([phone]) who lives in [place] is aware of patients treatment and discharge plan. Maxine is arranging Lyft transportation for the patient tomorrow.
[2020-09-20 15:28] VITALS: BP 126/46
[2020-09-20 20:07] VITALS: BP 118/54
[2020-09-20] MEDS: ATORVASTATIN 40 MG TABLET PO SCH (20:23)
[2020-09-20] MEDS: TAMSULOSIN HCL 0.4 MG CAP.SR.24H PO SCH (20:23)
[2020-09-21] MEDS: BLOOD SUGAR DIAGNOSTIC 1 EACH STRIP VI SCH (06:52)
[2020-09-21] MEDS: PANTOPRAZOLE SODIUM 40 MG TABLET.DR PO SCH (06:54)
[2020-09-21 07:30] VITALS: BP 92/50
--- NOTE | 2020-09-21 08:06 | NUR ---
SW DISCHARGE NOTE: Patient will be discharged to [facility], [address] [place] [address] ([phone]). Per [facility], social media job titles Maxine ([phone]), Pritesh ([phone]) from [facility] is aware and agreeable with patients arrival. protective services case worker Maxine ([phone]) is arranging Lyft transportation at 11AM. Patients daughter, Laurie ([phone]) who lives in [place] is aware of patients treatment and discharge plan. Patient is alert and oriented x4 and is aware and agreeable with his discharge plan. Patient denies suicidal or homicidal ideation. Patient denies visual and auditory hallucinations. Patient presents with euthymic mood and congruent affect. Patient is provided with the following resources: [facility] ([phone]); [facility] ([phone]); [facility] ([phone]); and National Suicide Prevention Lifeline (085-025-6774).
[2020-09-21] MEDS: ALLOPURINOL 100 MG TABLET PO SCH (08:51)
[2020-09-21] MEDS: LINAGLIPTIN 5 MG TABLET PO SCH (08:52)
[2020-09-21] MEDS: DIVALPROEX 250 MG TABLET.DR PO SCH (08:52)
[2020-09-21] MEDS: POTASSIUM CHLORIDE 10 MEQ TAB.PRT.SR PO SCH (08:52)
[2020-09-21] MEDS: CARVEDILOL 12.5 MG TABLET PO SCH (08:52)
[2020-09-21] MEDS: FUROSEMIDE 40 MG TABLET PO SCH (08:52)
[2020-09-21] MEDS: ASPIRIN 81 MG TAB.CHEW PO SCH (08:52)
[2020-09-21 08:53] VITALS: BP 92/50
[2020-09-21] MEDS: risperiDONE 0.5 MG TABLET PO SCH (08:53)
[2020-09-21] MEDS: LOSARTAN POTASSIUM 25 MG TABLET PO SCH (08:53)
[2020-09-21] MEDS: METFORMIN HCL 500 MG TABLET PO SCH (08:53)
--- NOTE | 2020-09-21 11:15 | NUR ---
GPS: Nursing Notes: Discharge Notes: Patient is awake and responding to his name, cooperative with nursing care, compliant with his medications, following staff directions, denies SI/HI, denies AH/VH, denies pain or discomfort at this time, denies SOB. discharge to [facility] at [address] [place] [address] , [facility], social media content manager - Maxine arrange the discharge and transportation and gave report to facility - Pritesh . Patient took all his belongings with him, transported to facility via private vehicle, instructions and prescription given to patient to give to the facility, facility needs to follow up with his psychiatrist and mark up designer as soon as possible. Patient is provided with the following resources: [facility] ([phone]); [facility] ([phone]); [facility] ([phone]); and National Suicide Prevention Lifeline (019-149-4640).
== END 2020-09-21 11:15 | disposition home or self-care (01) | DRG 885 ==
LOC: ER 16:39 → GPS 18:51
PROVIDERS: ADMIT Psychiatry & Neurology Psychiatry; ATTEND Nurse Practitioner Acute Care
DX: F25.9 Schizoaffective disorder, unspecified (principal); I11.0 Hypertensive heart disease with heart failure; F03.91 Unspecified dementia, unspecified severity, with behavioral disturbance; I48.20 Chronic atrial fibrillation, unspecified; I50.22 Chronic systolic (congestive) heart failure; E11.9 Type 2 diabetes mellitus without complications; I25.10 Atherosclerotic heart disease of native coronary artery without angina pectoris; I25.5 Ischemic cardiomyopathy; K21.9 Gastro-esophageal reflux disease without esophagitis; N40.0 Benign prostatic hyperplasia without lower urinary tract symptoms; Z85.89 Personal history of malignant neoplasm of other organs and systems; E78.5 Hyperlipidemia, unspecified; M10.9 Gout, unspecified; Z95.1 Presence of aortocoronary bypass graft; Z95.0 Presence of cardiac pacemaker; Z88.5 Allergy status to narcotic agent; Z88.2 Allergy status to sulfonamides; Z88.8 Allergy status to other drugs, medicaments and biological substances; Z78.1 Physical restraint status
CPT/HCPCS: 36415; 70450; 71045; 80164; 85025; 97161; A4663; J1815; J3490; J8499